=== PATIENT | male | born 1975 | race African-American/Black ===

== ENCOUNTER → 2021-03-31 | Outpatient (CLI) | payer OTHER ==
--- NOTE | 2021-03-31 15:45 | REP ---
INDICATION: PAIN IN RIGHT SHOULDER. COMPARISON: None. TECHNIQUE: Three views of the right shoulder were performed. FINDINGS: The distal clavicle is irregular at the AC joint which is well maintained. The glenohumeral relationship is within normal limits. There is no evidence of an acute fracture, dislocation, or subluxation. 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 Consider MRI. <Electronically signed by Olman Cr > 03/31/21 [id number]
--- NOTE | 2021-03-31 15:48 | REP ---
INDICATION: PAIN IN RIGHT FINGER(S) COMPARISON: None. TECHNIQUE: Four views right 1st digit. FINDINGS: There is no evidence of acute fracture, dislocation, or intrinsic bone disease. IMPRESSION: No fracture or dislocation. <Electronically signed by Shun Sepulveda > 03/31/21 [id number]
== END ==
LOC: M RAD 15:19
PROVIDERS: ATTEND Pediatrics
DX: M79.644 Pain in right finger(s) (principal); M25.511 Pain in right shoulder

== ENCOUNTER → 2021-06-09 | Outpatient (CLI) | payer OTHER | LOC: M RAD 11:56 | PROVIDERS: ATTEND Pediatrics | DX: E04.2 Nontoxic multinodular goiter (principal) ==

== ENCOUNTER → 2021-11-23 | Outpatient (REF) | payer OTHER ==
[2021-11-23 18:32] LABS: BLOOD UREA NITROGEN 20 MG/DL (7-18); CALCIUM LEVEL 9.2 MG/DL (8.5-10.1); CARBON DIOXIDE LEVEL 30 MEQ/L (21-32); CHLORIDE LEVEL 106 MEQ/L (98-107); CREATININE FOR GFR 1.05 MG/DL (0.70-1.30); GLOMERULAR FILTRATION RATE > 60.0 (>60); GLUCOSE, FASTING 89 MG/DL (70-100); MAGNESIUM LEVEL 2.3 MG/DL (1.8-2.4); NT-PRO BNP 262 PG/ML (<125); POTASSIUM SERUM 4.7 MEQ/L (3.5-5.1); SODIUM LEVEL 140 MEQ/L (136-145)
[2021-11-23 18:51] LABS: HEMATOCRIT 42.6 % (42.0-52.0); HEMOGLOBIN 14.5 g/dl (13.5-17.5); MEAN CORPUSCULAR HEMOGLOBIN 30.7 pg (27.0-33.0); MEAN CORPUSCULAR VOLUME 90.1 fl (80.0-96.0); PLATELET COUNT, AUTOMATED 187 10^3/uL (150-450); RED BLOOD COUNT 4.73 10^6/uL (4.30-6.10); WHITE BLOOD COUNT 6.7 10^3/uL (4.0-10.0)
== END ==
LOC: M LAB REF 15:33
PROVIDERS: ATTEND Physician Assistant
DX: R10.9 Unspecified abdominal pain (principal)

== ENCOUNTER 2022-03-28 02:22 | Inpatient (IN) | payer OTHER ==
[2022-03-28] VITALS (7 sets, daily range): BP systolic 127–147; BP diastolic 63–82
[~2022-03-28] VITALS: Ht 165.1 cm; Wt 55.4 kg
[2022-03-28] MEDS ORDERED: ISOVUE-370 76% 100ML VIAL As Ordered ONE (02:31)
[2022-03-28] MEDS ORDERED: ONDANSETRON 4MG 2ML VIAL IV ONE (02:45)
[2022-03-28] MEDS ORDERED: MORPHINE 4 MG/ML 1ML VIAL/SYRINGE IV ONE ×3 (02:45→05:25)
[2022-03-28] MEDS ORDERED: NS 1,000 ML IV ONE ×2 (02:45→04:45)
[2022-03-28 02:53] LABS: BASO % 0.4 % (0.0-1.0); EOS % 0.5 % (0.0-3.0); HEMATOCRIT 38.7 % (42.0-52.0); HEMOGLOBIN 13.1 g/dl (13.5-17.5); LYMPH # 2.6 10^3/uL (1.5-5.0); LYMPH % 34.8 % (24.0-44.0); MEAN CORPUSCULAR HEMOGLOBIN 33.9 pg (27.0-33.0); MEAN CORPUSCULAR HGB CONC 33.9 g/dl (32.0-36.5); MONO # 0.5 10^3/uL (0.0-0.8); MONO % 7.2 % (2.0-8.0); NEUTROPHILS # 4.3 10^3/uL (1.5-8.5); NEUTROPHILS % 56.8 % (36.0-66.0); PLATELET COUNT, AUTOMATED 193 10^3/uL (150-450); RED BLOOD COUNT 3.87 10^6/uL (4.30-6.10); WHITE BLOOD COUNT 7.5 10^3/uL (4.0-10.0)
[2022-03-28 03:01] LABS: BLOOD UREA NITROGEN 9 MG/DL (7-18); CALCIUM LEVEL 8.5 MG/DL (8.5-10.1); CARBON DIOXIDE LEVEL 20 MEQ/L (21-32); CHLORIDE LEVEL 106 MEQ/L (98-107); CREATININE FOR GFR 1.04 MG/DL (0.70-1.30); GLOMERULAR FILTRATION RATE > 60.0 (>60); GLUCOSE, FASTING 152 MG/DL (70-100); POTASSIUM SERUM 3.4 MEQ/L (3.5-5.1); SODIUM LEVEL 141 MEQ/L (136-145)
[2022-03-28] MEDS ORDERED: ceFAZolin SOD 1 GM in D5W MINI-BAG PLUS 50 ML IV ONE (03:05)
[2022-03-28] MEDS ORDERED: BOOSTRIX/ADACEL VACCINE (DIPHTH/PERTUSS/ACELL/TETANUS) 0.5ML SYR IM.IMMUN ONE (03:05)
[2022-03-28] MEDS ORDERED: LIDOCAINE W/EPINEPHRINE 1% 20ML VIAL SC ONE (03:05)
[2022-03-28] MEDS ORDERED: MORPHINE 2 MG/ML 1ML VIAL As Ordered ONE (04:21)
[2022-03-28] MEDS ORDERED: HOME MED LIST COMPLETE! XX SCH (05:30)
[2022-03-28] MEDS ORDERED: ROCURONIUM BROMIDE 50 MG/5 ML VIAL As Ordered ONE (05:37)
[2022-03-28] MEDS ORDERED: fentaNYL 250 MCG/5 ML INJECTION As Ordered ONE (05:37)
[2022-03-28] MEDS ORDERED: propofoL 200 MG/20 ML VIAL As Ordered ONE (05:37)
[2022-03-28] MEDS ORDERED: LIDOCAINE 2% 100MG/5ML SDV (FOR ANES.) As Ordered ONE (05:37)
[2022-03-28] MEDS ORDERED: MIDAZOLAM INJ 2MG/2ML VIAL (J2250 PER 1MG) As Ordered ONE (05:38)
[2022-03-28] MEDS ORDERED: dexameTHASONE 4 MG/ML 1ML VIAL (J1100 PER 1MG) As Ordered ONE (05:38)
[2022-03-28] MEDS ORDERED: ONDANSETRON 4MG 2ML VIAL As Ordered ONE (05:38)
[2022-03-28] MEDS ORDERED: LIDOCAINE 1% SDV 30ML VIAL As Ordered ONE (05:47)
[2022-03-28] MEDS ORDERED: BUPIVACAINE/EPIN 0.5% 30 ML VIAL As Ordered ONE (05:48)
[2022-03-28 05:57] LABS: RSV AMPLIFICATION NEGATIVE (NEGATIVE)
[2022-03-28] MEDS ORDERED: SUCCINYLCHOLINE 100 MG/5 ML SYRINGE (J0330) As Ordered ONE (06:05)
[2022-03-28] MEDS ORDERED: ESMOLOL INJ 100MG/10ML VIAL As Ordered ONE (06:11)
[2022-03-28] MEDS ORDERED: VASOPRESSIN INJ 20 UNITS/ML VIAL As Ordered ONE (06:21)
[2022-03-28] MEDS ORDERED: ceFAZolin 2 GM/D5W 50 ML IV BAG (J0690 PER 500MG) As Ordered ONE (06:23)
[2022-03-28] MEDS ORDERED: SUGAMMADEX SODIUM 500 MG/5 ML VIAL (BRIDION) As Ordered ONE (07:29)
[2022-03-28] MEDS ORDERED: MORPHINE 4 MG/ML 1ML VIAL/SYRINGE IV PRN (07:55)
[2022-03-28] MEDS ORDERED: ACETAMINOPHEN TAB 650MG DOSE (2X325MG) PO PRN (07:55)
[2022-03-28 08:33] LABS: HEMATOCRIT 22.2 % (42.0-52.0)
[2022-03-28 08:34] LABS: HEMOGLOBIN 7.4 g/dl (13.5-17.5)
[2022-03-28] MEDS ORDERED: oxyCODONE 5MG TAB PO ONE (08:40)
[2022-03-28 09:23] LABS: HEMOGLOBIN 8.5 g/dl (13.5-17.5); PLATELET COUNT, AUTOMATED 124 10^3/uL (150-450); WHITE BLOOD COUNT 11.8 10^3/uL (4.0-10.0)
[2022-03-28 09:34] LABS: INR 1.17; PROTHROMBIN TIME 15.3 SECONDS (12.7-14.5)
[2022-03-28 10:07] LABS: ALBUMIN 3.3 GM/DL (3.2-5.2); ALT/SGPT 22 U/L (12-78); BILIRUBIN,TOTAL 0.4 MG/DL (0.2-1.0); BLOOD UREA NITROGEN 6 MG/DL (7-18); CALCIUM LEVEL 6.8 MG/DL (8.5-10.1); CARBON DIOXIDE LEVEL 22 MEQ/L (21-32); CHLORIDE LEVEL 112 MEQ/L (98-107); CREATININE FOR GFR 0.78 MG/DL (0.70-1.30); GLOMERULAR FILTRATION RATE > 60.0 (>60); GLUCOSE, FASTING 123 MG/DL (70-100); POTASSIUM SERUM 3.7 MEQ/L (3.5-5.1); SODIUM LEVEL 143 MEQ/L (136-145); TOTAL PROTEIN 5.4 GM/DL (6.4-8.2)
[2022-03-28] MEDS: DOCUSATE SODIUM 100MG CAPSULE PO SCH ×2 (10:15→21:00)
[2022-03-28] MEDS: PANTOPRAZOLE 40MG VIAL IV SCH (10:16)
[2022-03-28] MEDS: ceFAZolin SOD 1 GM in D5W MINI-BAG PLUS 50 ML IV SCH ×2 (10:17→18:49)
[2022-03-28] MEDS: PERCOCET 5MG/325MG TAB PO PRN (14:54)
[2022-03-28] MEDS: HYDROMORPHONE HCL 0.5 MG/ 0.5 ML SYRINGE (J1170 PER 1) IV PRN ×2 (15:28→21:29)
[2022-03-28] MEDS: ENOXAPARIN 30MG/0.3ML SYRINGE (J1650 PER 10MG) SC SCH (21:28)
[2022-03-29] VITALS (22 sets, daily range): BP systolic 114–135; BP diastolic 62–79; O2SAT 96–100
[2022-03-29] MEDS ORDERED: UNRESOLVED CLARIFICATION ENTRY XX SCH (00:01)
[2022-03-29] MEDS: PERCOCET 5MG/325MG TAB PO PRN ×4 (00:25→23:20)
[2022-03-29] MEDS: ceFAZolin SOD 1 GM in D5W MINI-BAG PLUS 50 ML IV SCH ×3 (04:19→20:13)
[2022-03-29] MEDS: HYDROMORPHONE HCL 0.5 MG/ 0.5 ML SYRINGE (J1170 PER 1) IV PRN ×4 (04:24→19:50)
[2022-03-29 05:01] LABS: HEMATOCRIT 25.4 % (42.0-52.0); HEMOGLOBIN 8.8 g/dl (13.5-17.5); MEAN CORPUSCULAR HEMOGLOBIN 33.6 pg (27.0-33.0); MEAN CORPUSCULAR HGB CONC 34.6 g/dl (32.0-36.5); MEAN CORPUSCULAR VOLUME 96.9 fl (80.0-96.0); PLATELET COUNT, AUTOMATED 129 10^3/uL (150-450); RED BLOOD COUNT 2.62 10^6/uL (4.30-6.10); WHITE BLOOD COUNT 10.6 10^3/uL (4.0-10.0)
[2022-03-29 05:40] LABS: ALBUMIN 3.6 GM/DL (3.2-5.2); ALT/SGPT 42 U/L (12-78); BLOOD UREA NITROGEN 8 MG/DL (7-18); CALCIUM LEVEL 8.3 MG/DL (8.5-10.1); CARBON DIOXIDE LEVEL 28 MEQ/L (21-32); CHLORIDE LEVEL 104 MEQ/L (98-107); CREATININE FOR GFR 0.71 MG/DL (0.70-1.30); GLOMERULAR FILTRATION RATE > 60.0 (>60); GLUCOSE, FASTING 107 MG/DL (70-100); POTASSIUM SERUM 3.5 MEQ/L (3.5-5.1); SODIUM LEVEL 140 MEQ/L (136-145)
[2022-03-29] MEDS: PANTOPRAZOLE 40MG VIAL IV SCH (09:38)
[2022-03-29] MEDS: DOCUSATE SODIUM 100MG CAPSULE PO SCH ×2 (09:38→20:13)
[2022-03-29] MEDS: ENOXAPARIN 30MG/0.3ML SYRINGE (J1650 PER 10MG) SC SCH (20:13)
[2022-03-30] VITALS (17 sets, daily range): BP systolic 113–138; BP diastolic 57–68; O2SAT 95–99
[2022-03-30] MEDS: HYDROMORPHONE HCL 0.5 MG/ 0.5 ML SYRINGE (J1170 PER 1) IV PRN ×2 (00:15→03:18)
[2022-03-30] MEDS: ceFAZolin SOD 1 GM in D5W MINI-BAG PLUS 50 ML IV SCH ×2 (03:12→10:32)
[2022-03-30 05:13] LABS: HEMOGLOBIN 9.2 g/dl (13.5-17.5); MEAN CORPUSCULAR HEMOGLOBIN 33.3 pg (27.0-33.0); MEAN CORPUSCULAR HGB CONC 34.1 g/dl (32.0-36.5); MEAN CORPUSCULAR VOLUME 97.8 fl (80.0-96.0); PLATELET COUNT, AUTOMATED 123 10^3/uL (150-450); RED BLOOD COUNT 2.76 10^6/uL (4.30-6.10); WHITE BLOOD COUNT 7.6 10^3/uL (4.0-10.0)
[2022-03-30 05:42] LABS: BLOOD UREA NITROGEN 6 MG/DL (7-18); CALCIUM LEVEL 8.7 MG/DL (8.5-10.1); CARBON DIOXIDE LEVEL 32 MEQ/L (21-32); CHLORIDE LEVEL 103 MEQ/L (98-107); CREATININE FOR GFR 0.79 MG/DL (0.70-1.30); GLOMERULAR FILTRATION RATE > 60.0 (>60); GLUCOSE, FASTING 108 MG/DL (70-100); POTASSIUM SERUM 3.4 MEQ/L (3.5-5.1); SODIUM LEVEL 138 MEQ/L (136-145)
[2022-03-30] MEDS: PERCOCET 5MG/325MG TAB PO PRN (06:50)
[2022-03-30] MEDS ORDERED: PERCOCET PO ×2 (08:00→08:56)
[2022-03-30] MEDS ORDERED: COLA100C5 PO ×2 (08:00→08:56)
[2022-03-30] MEDS ORDERED: ACET1TAB55 PO ×2 (08:00→08:56)
[2022-03-30] MEDS ORDERED: POTASSIUM CHLORIDE 10MEQ SR TABLET PO ONE (09:00)
[2022-03-30] MEDS ORDERED: SENN-80 PO (09:45)
[2022-03-30] MEDS ORDERED: KETOROLAC 30 MG/ML 1ML VIAL IV ONE (10:00)
[2022-03-30] MEDS: DOCUSATE SODIUM 100MG CAPSULE PO SCH (10:29)
[2022-03-30] MEDS: PANTOPRAZOLE 40MG VIAL IV SCH (10:32)
[2022-03-30] MEDS ORDERED: CEPH500C PO (11:00)
== END 2022-03-30 12:25 | disposition home or self-care (01) | DRG 317 ==
LOC: M ED 02:22 → EDBD 02:22 → M SDC 05:28 → M PCU 09:13 → INTOOBSV 09:13 → M PCU 15:14 → OBSVTOIN 03-29 13:57
PROVIDERS: ADMIT Surgery Vascular Surgery; ATTEND Internal Medicine
PROC: 0KQB0ZZ Repair Left Lower Arm and Wrist Muscle, Open Approach (ICD-10-PCS; principal; 2022-03-29)
PROC: 0KNB0ZZ Release Left Lower Arm and Wrist Muscle, Open Approach (ICD-10-PCS; 2022-03-29)
PROC: 03LA0ZZ Occlusion of Left Ulnar Artery, Open Approach (ICD-10-PCS; 2022-03-29)
DX: T79.A12A Traumatic compartment syndrome of left upper extremity, initial encounter (principal); D62 Acute posthemorrhagic anemia; S54.02XA Injury of ulnar nerve at forearm level, left arm, initial encounter; D72.829 Elevated white blood cell count, unspecified; S56.522A Laceration of other extensor muscle, fascia and tendon at forearm level, left arm, initial encounter; S56.222A Laceration of other flexor muscle, fascia and tendon at forearm level, left arm, initial encounter; F12.90 Cannabis use, unspecified, uncomplicated; S51.812A Laceration without foreign body of left forearm, initial encounter; T14.8XXA Other injury of unspecified body region, initial encounter; X99.1XXA Assault by knife, initial encounter; Y92.838 Other recreation area as the place of occurrence of the external cause

== ENCOUNTER 2022-05-04 09:10 | Outpatient (RCR) | payer OTHER ==
[~2022-05-04 09:10] MED LIST: ACET1TAB55 PO; CEPH500C PO; COLA100C5 PO; PERCOCET PO; SENN-80 PO
== END 2022-05-10 ==
LOC: M OT 09:10
PROVIDERS: ATTEND Internal Medicine
DX: T79.A12D Traumatic compartment syndrome of left upper extremity, subsequent encounter (principal)

== ENCOUNTER → 2024-03-23 | Outpatient (REF) | payer MEDICAID, OTHER ==
[~2024-03-23] MED LIST changes: +SENN-186 PO; -SENN-80 PO
[2024-03-23 17:10] LABS: PROSTATIC SPECIFIC AG MONITOR 2.53 NG/ML (< 4.00)
[2024-03-23 17:14] LABS: THYROID STIMULATING HORMONE 0.607 uIU/ML (0.55-4.78)
[2024-03-23 17:15] LABS: FREE T4 1.15 NG/DL (0.89-1.76)
[2024-03-23 17:16] LABS: TOTAL 25(OH) VITAMIN D 15.7 NG/ML (20.0-100.0)
== END ==
LOC: M LAB REF 16:36
PROVIDERS: ATTEND Pediatrics
DX: E04.1 Nontoxic single thyroid nodule (principal); Z12.5 Encounter for screening for malignant neoplasm of prostate; E55.9 Vitamin D deficiency, unspecified

== ENCOUNTER → 2024-04-24 | Outpatient (CLI) | payer OTHER, MEDICAID | LOC: M RAD 14:30 | PROVIDERS: ATTEND Pediatrics | DX: E04.1 Nontoxic single thyroid nodule (principal) ==

== ENCOUNTER 2024-04-29 18:22 | Inpatient (IN) | payer MEDICAID, OTHER ==
[~2024-04-29] VITALS: Ht 167.6 cm; Wt 63.3 kg
[2024-04-29] MEDS ORDERED: GABA-1172 PO (18:29)
[2024-04-29 20:11] LABS: BASO % 0.4 % (0.0-1.0); EOS % 0.2 % (0.0-3.0); HEMATOCRIT 36.6 % (42.0-52.0); HEMOGLOBIN 13.3 g/dl (13.5-17.5); LYMPH # 1.3 10^3/uL (1.5-5.0); LYMPH % 15.9 % (24.0-44.0); MEAN CORPUSCULAR HEMOGLOBIN 34.6 pg (27.0-33.0); MEAN CORPUSCULAR HGB CONC 36.3 g/dl (32.0-36.5); MEAN CORPUSCULAR VOLUME 95.3 fl (80.0-96.0); MONO # 0.5 10^3/uL (0.0-0.8); MONO % 5.9 % (2.0-8.0); NEUTROPHILS # 6.4 10^3/uL (1.5-8.5); NEUTROPHILS % 77.4 % (36.0-66.0); PLATELET COUNT, AUTOMATED 168 10^3/uL (150-450); RED BLOOD COUNT 3.84 10^6/uL (4.30-6.10); WHITE BLOOD COUNT 8.3 10^3/uL (4.0-10.0)
[2024-04-29] MEDS: ACETAMINOPHEN *IV* 1,000 MG in IV 1 EA IV ONE (20:15)
[2024-04-29] MEDS: MORPHINE 2 MG/ML 1ML VIAL IV PRN (20:17)
[2024-04-29 20:38] LABS: BLOOD UREA NITROGEN 10 MG/DL (9-23); CALCIUM LEVEL 8.6 MG/DL (8.5-10.1); CARBON DIOXIDE LEVEL 28 MMOL/L (20-31); CHLORIDE LEVEL 109 MMOL/L (98-107); CREATININE FOR GFR 0.79 MG/DL (0.70-1.30); GLOMERULAR FILTRATION RATE > 60.0 (>60); GLUCOSE, FASTING 86 MG/DL (60-100); MAGNESIUM LEVEL 1.9 MG/DL (1.8-2.4); POTASSIUM SERUM 3.6 MMOL/L (3.5-5.1); SODIUM LEVEL 142 MMOL/L (136-145)
[2024-04-29] MEDS ORDERED: B-122500 PO (23:06)
[2024-04-29] MEDS ORDERED: D 101000 PO (23:06)
[2024-04-29] MEDS ORDERED: IBUP-1022 PO (23:06)
[2024-04-29] MEDS ORDERED: CALC500C16 PO (23:06)
[2024-04-29] MEDS ORDERED: HOME MED LIST COMPLETE! XX SCH (23:10)
[2024-04-30] VITALS (9 sets, daily range): BP systolic 115–135; BP diastolic 59–80; TEMP 97–98.4; O2SAT 95–99
[2024-04-30] MEDS: KETOROLAC 30 MG/ML 1ML VIAL IV PRN (03:08)
[2024-04-30] MEDS: NS 1,000 ML IV SCH (04:54)
[2024-04-30] MEDS: MORPHINE 4 MG/ML 1ML VIAL IV PRN (04:55)
[2024-04-30 06:10] LABS: HEMATOCRIT 34.6 % (42.0-52.0); MEAN CORPUSCULAR HGB CONC 34.7 g/dl (32.0-36.5); MEAN CORPUSCULAR VOLUME 95.1 fl (80.0-96.0); PLATELET COUNT, AUTOMATED 166 10^3/uL (150-450); RED BLOOD COUNT 3.64 10^6/uL (4.30-6.10); WHITE BLOOD COUNT 9.9 10^3/uL (4.0-10.0)
[2024-04-30 06:45] LABS: ALBUMIN 3.3 G/DL (3.2-5.2); ALKALINE PHOSPHATASE 46 U/L (46-116); ALT/SGPT 25 U/L (7.0-40); AST/SGOT 25 U/L (<34); BILIRUBIN,TOTAL 0.7 MG/DL (0.3-1.2); BLOOD UREA NITROGEN 10 MG/DL (9-23); CALCIUM LEVEL 9.3 MG/DL (8.5-10.1); CARBON DIOXIDE LEVEL 29 MMOL/L (20-31); CHLORIDE LEVEL 110 MMOL/L (98-107); CREATININE FOR GFR 0.77 MG/DL (0.70-1.30); GLOMERULAR FILTRATION RATE > 60.0 (>60); GLUCOSE, FASTING 90 MG/DL (60-100); POTASSIUM SERUM 3.8 MMOL/L (3.5-5.1); SODIUM LEVEL 144 MMOL/L (136-145); TOTAL PROTEIN 5.9 G/DL (5.7-8.2)
[2024-04-30] MEDS: DOCUSATE SODIUM 100MG CAPSULE PO SCH (08:14)
[2024-04-30] MEDS: ACETAMINOPHEN 325 MG TAB PO PRN (08:14)
[2024-04-30] MEDS: MORPHINE 4 MG/ML 1ML VIAL IV ONE (11:27)
[2024-04-30] MEDS ORDERED: HYDROmorphone HCL 2MG/ML 1ML VIAL As Ordered ONE (16:19)
[2024-04-30] MEDS: HYDROmorphone HCL 2MG/ML 1ML VIAL IV PRN (16:20)
[2024-04-30] MEDS ORDERED: ONDANSETRON 4MG 2ML VIAL As Ordered ONE (16:56)
[2024-04-30] MEDS ORDERED: propofoL 200 MG/20 ML VIAL As Ordered ONE (16:56)
[2024-04-30] MEDS ORDERED: LIDOCAINE 2% 100MG/5ML SDV (FOR ANES.) As Ordered ONE (16:56)
[2024-04-30] MEDS ORDERED: ROCURONIUM BROMIDE 50MG/5ML VIAL As Ordered ONE (16:56)
[2024-04-30] MEDS ORDERED: fentaNYL 250 MCG/5 ML INJECTION As Ordered ONE (16:57)
[2024-04-30] MEDS ORDERED: MIDAZOLAM INJ 2MG/2ML VIAL As Ordered ONE (16:57)
[2024-04-30] MEDS: ceFAZolin 2 GM/D5W 50 ML IV BAG As Ordered ONE (17:25)
[2024-04-30] MEDS ORDERED: SUGAMMADEX SODIUM 500 MG/5 ML VIAL (BRIDION) As Ordered ONE (18:01)
[2024-04-30] MEDS ORDERED: ACETAMINOPHEN 1000MG 100ML IV BAG As Ordered ONE (18:01)
[2024-04-30] MEDS ORDERED: ePHEDrine SULFATE 25 MG/5 ML(5MG/ML) SYRINGE As Ordered ONE (18:01)
[2024-04-30] MEDS ORDERED: oxyCODONE 5MG TAB PO PRN (18:50)
[2024-04-30] MEDS: LR 1,000 ML IV SCH (18:50)
[2024-04-30] MEDS ORDERED: HYDROMORPHONE HCL 0.5 MG/ 0.5 ML SYRINGE IV PRN (18:50)
[2024-04-30] MEDS ORDERED: fentaNYL 100 MCG/2 ML INJECTION IV PRN (18:50)
[2024-04-30] MEDS ORDERED: ONDANSETRON 4MG 2ML VIAL IV PRN (18:50)
[2024-04-30] MEDS ORDERED: KETOROLAC 60MG 2ML VIAL As Ordered ONE (19:10)
[2024-04-30] MEDS: ceFAZolin SOD 2 GM in IV 1 EA IV SCH (22:44)
[2024-05-01] VITALS (7 sets, daily range): BP systolic 114–124; BP diastolic 59–69; TEMP 97–98.4; O2SAT 96–99
[2024-05-01] MEDS: ENOXAPARIN 40MG/0.4ML SYRINGE (J1650 PER 10MG) SC SCH (08:44)
[2024-05-01] MEDS: CALCIUM CARBONATE 500 MG CHEW U/D PO SCH (08:44)
[2024-05-01] MEDS: GABAPENTIN 300 MG CAP PO SCH (08:45)
[2024-05-01] MEDS: CYANOCOBALAMIN 500 MCG TAB PO SCH (08:45)
[2024-05-01] MEDS: PERCOCET 5MG/325MG TAB PO PRN (10:48)
[2024-05-02 04:11] VITALS: BP 123/60; TEMP 97.2; O2SAT 99
[2024-05-02] MEDS: PERCOCET 5MG/325MG TAB PO PRN (08:29)
[2024-05-02 12:00] VITALS: BP 128/74; TEMP 97.5; O2SAT 98
[2024-05-02] MEDS ORDERED: OXYC1TAB23 PO (13:25)
== END 2024-05-02 16:40 | disposition home or self-care (01) | DRG 308 ==
LOC: EDBD 18:22 → M ED 18:22 → M ED INP 04-30 01:48 → M MS5PR 04-30 03:02
PROVIDERS: ADMIT Student in an Organized Health Care Education/Training Program; ATTEND Internal Medicine
PROC: 0QS634Z Reposition Right Upper Femur with Internal Fixation Device, Percutaneous Approach (ICD-10-PCS; principal; 2024-04-30 15:00)
DX: S72.141A Displaced intertrochanteric fracture of right femur, initial encounter for closed fracture (principal); G62.9 Polyneuropathy, unspecified; E53.8 Deficiency of other specified B group vitamins; V18.0XXA Pedal cycle driver injured in noncollision transport accident in nontraffic accident, initial encounter; T79.A1 Traumatic compartment syndrome of upper extremity; Z79.899 Other long term (current) drug therapy; G89.29 Other chronic pain

== ENCOUNTER → 2024-05-09 | Outpatient (CLI) | payer MEDICAID ==
[~2024-05-09] MED LIST changes: +B-122500 PO; +CALC500C16 PO; +D 101000 PO; +GABA-1172 PO; +IBUP-1022 PO; +OXYC1TAB23 PO
== END ==
LOC: M SOG 07:23
PROVIDERS: ATTEND Orthopaedic Surgery
DX: S72.141D Displaced intertrochanteric fracture of right femur, subsequent encounter for closed fracture with routine healing (principal); S72.301D Unspecified fracture of shaft of right femur, subsequent encounter for closed fracture with routine healing

== ENCOUNTER 2024-05-31 10:11 | Outpatient (RCR) | payer MEDICAID | END 2024-06-09 | LOC: M PT 10:11 | PROVIDERS: ATTEND Orthopaedic Surgery | DX: S72.141D Displaced intertrochanteric fracture of right femur, subsequent encounter for closed fracture with routine healing (principal) ==

== ENCOUNTER → 2024-06-20 | Outpatient (CLI) | payer MEDICAID | LOC: M SOG 07:53 | PROVIDERS: ATTEND Physician Assistant | DX: S72.141A Displaced intertrochanteric fracture of right femur, initial encounter for closed fracture (principal); S72.301A Unspecified fracture of shaft of right femur, initial encounter for closed fracture; W18.30XA Fall on same level, unspecified, initial encounter; Y92.009 Unspecified place in unspecified non-institutional (private) residence as the place of occurrence of the external cause ==

== ENCOUNTER → 2024-07-10 | Outpatient (RCR) | payer MEDICAID | LOC: M PT 06-12 08:27 | PROVIDERS: ATTEND Orthopaedic Surgery | DX: S72.141A Displaced intertrochanteric fracture of right femur, initial encounter for closed fracture (principal); W18.30XA Fall on same level, unspecified, initial encounter; Y92.009 Unspecified place in unspecified non-institutional (private) residence as the place of occurrence of the external cause ==

== ENCOUNTER 2024-08-09 10:05 | Outpatient (RCR) | payer MEDICAID | END 2024-08-10 | LOC: M PT 10:05 | PROVIDERS: ATTEND Orthopaedic Surgery | DX: S72.141D Displaced intertrochanteric fracture of right femur, subsequent encounter for closed fracture with routine healing (principal) ==

== ENCOUNTER 2024-09-04 13:27 | Outpatient (RCR) | payer MEDICAID | END 2024-09-07 | LOC: M PT 13:27 | PROVIDERS: ATTEND Orthopaedic Surgery | DX: S72.141A Displaced intertrochanteric fracture of right femur, initial encounter for closed fracture (principal); X58.XXXA Exposure to other specified factors, initial encounter; Y92.9 Unspecified place or not applicable ==

== ENCOUNTER 2024-09-18 09:49 | Outpatient (RCR) | payer MEDICAID | END 2024-10-08 | LOC: M PT 09:49 | PROVIDERS: ATTEND Orthopaedic Surgery | DX: S72.141A Displaced intertrochanteric fracture of right femur, initial encounter for closed fracture (principal); X58.XXXA Exposure to other specified factors, initial encounter; Y92.9 Unspecified place or not applicable ==

== ENCOUNTER → 2024-09-19 | Outpatient (CLI) | payer MEDICAID | LOC: M SOG 07:48 | PROVIDERS: ATTEND Physician Assistant | DX: S72.141A Displaced intertrochanteric fracture of right femur, initial encounter for closed fracture (principal); S72.301A Unspecified fracture of shaft of right femur, initial encounter for closed fracture; W18.30XA Fall on same level, unspecified, initial encounter; Y92.009 Unspecified place in unspecified non-institutional (private) residence as the place of occurrence of the external cause ==

== ENCOUNTER → 2024-10-30 | Outpatient (REF) | payer MEDICAID, OTHER ==
[2024-10-30 19:09] LABS: BASO % 0.5 % (0.0-1.0); EOS % 0.6 % (0.0-3.0); HEMATOCRIT 42.2 % (42.0-52.0); HEMOGLOBIN 14.4 g/dl (13.5-17.5); LYMPH # 1.3 10^3/uL (1.5-5.0); MEAN CORPUSCULAR HEMOGLOBIN 33.6 pg (27.0-33.0); MEAN CORPUSCULAR HGB CONC 34.1 g/dl (32.0-36.5); MEAN CORPUSCULAR VOLUME 98.6 fl (80.0-96.0); MONO # 0.5 10^3/uL (0.0-0.8); MONO % 7.3 % (2.0-8.0); NEUTROPHILS # 4.8 10^3/uL (1.5-8.5); NEUTROPHILS % 72.3 % (36.0-66.0); PLATELET COUNT, AUTOMATED 223 10^3/uL (150-450); RED BLOOD COUNT 4.28 10^6/uL (4.30-6.10); WHITE BLOOD COUNT 6.6 10^3/uL (4.0-10.0)
[2024-10-30 19:17] LABS: FERRITIN 19.3 NG/ML (10.5-307.3); PERCENT SATURATION 76.4 % (19.7-50.0)
[2024-10-30 19:25] LABS: FOLATE 12.8 NG/ML (>5.4)
== END ==
LOC: M LAB REF 17:07
PROVIDERS: ATTEND Pediatrics
DX: D64.9 Anemia, unspecified (principal)

== ENCOUNTER → 2025-04-02 | Outpatient (REF) | payer OTHER ==
[~2025-04-02] MED LIST changes: -IBUP-1022 PO; +IBUP600T42 PO
[2025-04-02 19:10] LABS: APPEARANCE, URINE HAZY (CLEAR); BACTERIA, URINE AUTO NEGATIVE (NEGATIVE); BILIRUBIN, URINE AUTO NEGATIVE (NEGATIVE); BLOOD, URINE BLOOD NEGATIVE (NEGATIVE); GLUCOSE, URINE (UA) AUTO NEGATIVE (NEGATIVE); KETONE, URINE AUTO NEGATIVE (NEGATIVE); LEUKOCYTE ESTERASE, URINE AUTO TRACE (NEGATIVE); MUCUS, URINE SMALL (NEGATIVE); NITRITE, URINE AUTO NEGATIVE (NEGATIVE); PROTEIN, URINE AUTO NEGATIVE (NEGATIVE); RBC, URINE AUTO 2 /HPF (0-3); SPECIFIC GRAVITY URINE AUTO 1.024 (1.002-1.035); SQUAMOUS EPITHELIAL CELL UR AU 1 /HPF (0-6); UROBILINOGEN, URINE AUTO 2.0 mg/dL (0.0-2.0); WBC, URINE AUTO 9 /HPF (0-3)
[2025-04-02 19:44] LABS: ALT/SGPT 24 U/L (7.0-40); AST/SGOT 30 U/L (<34); CALCIUM LEVEL 9.2 MG/DL (8.5-10.1); CARBON DIOXIDE LEVEL 32 MMOL/L (20-31); CHLORIDE LEVEL 105 MMOL/L (98-107); CREATININE FOR GFR 0.79 MG/DL (0.70-1.30); GLOMERULAR FILTRATION RATE > 90.0 (>60); POTASSIUM SERUM 4.3 MMOL/L (3.5-5.1); PSA SCREENING 1.76 NG/ML (< 4.00); SODIUM LEVEL 141 MMOL/L (136-145)
[2025-04-02 19:45] LABS: FREE T4 1.27 NG/DL (0.89-1.76)
[2025-04-02 19:46] LABS: TOTAL 25(OH) VITAMIN D 17.9 NG/ML (20.0-100.0)
== END ==
LOC: M LAB REF 16:48
PROVIDERS: ATTEND Pediatrics
DX: R10.9 Unspecified abdominal pain (principal); E06.9 Thyroiditis, unspecified; Z12.5 Encounter for screening for malignant neoplasm of prostate; E55.9 Vitamin D deficiency, unspecified; E10.9 Type 1 diabetes mellitus without complications

== ENCOUNTER → 2025-05-28 | Outpatient (CLI) | payer OTHER | LOC: M RAD 10:53 | PROVIDERS: ATTEND Pediatrics | DX: E04.1 Nontoxic single thyroid nodule (principal) ==